=== PATIENT | female | born 1955 | race Caucasian/White ===

== ENCOUNTER → 2016-08-06 | Outpatient (CLI) | payer OTHER ==
[~2016-08-06] MED LIST: AMBI5TAB PO; ASPI1TAB69 PO; DIFL0.0512 LEFT EYE; LEVO112T2 PO; NEPA0.3D LEFT EYE; PANT40TA3 PO; PROT40TA PO; REST0.05 EACH EYE; REST0.05 OU; ST JTAB PO; VIGA0.5D LEFT EYE; VITA100064 PO; VITA20003 PO
[2016-08-06 13:36] LABS: AUTOMATED NEUTROPHIL # 5.1 TH/MM3 (1.8-7.7); BASOPHIL # 0.1 TH/MM3 (0-0.2); BASOPHIL % 0.6 % (0.0-2.0); EOSINOPHIL # 0.2 TH/MM3 (0-0.4); EOSINOPHIL % 2.3 % (0.0-4.0); HEMATOCRIT 42.8 % (35.0-46.0); HEMO FLAGS DIFF FINAL; LYMPHOCYTE # 2.4 TH/MM3 (1.0-4.8); MEAN CELL VOLUME 96.9 FL (80.0-100.0); MEAN CORPUSCULAR HEMOGLOBIN 33.4 PG (27.0-34.0); MEAN CORPUSCULAR HGB CONC 34.4 % (32.0-36.0); MONO % 7.2 % (0.0-8.0); NEUT % 60.9 % (16.0-70.0); PLATELET COUNT 252 TH/MM3 (150-450); RED BLOOD COUNT 4.41 MIL/MM3 (4.00-5.30); WHITE BLOOD COUNT 8.3 TH/MM3 (4.0-11.0)
[2016-08-06 13:42] LABS: BLOOD, URINE SMALL (NEG); GLUCOSE,URINE NEG (NEG); KETONE, URINE NEG (NEG); MUCUS URINE FEW /lpf (OCC); NITRITE,URINE NEG (NEG); URINE COLOR YELLOW (YELLW/STRAW)
[2016-08-06 13:44] LABS: COMMENT (UR) CULT NOT INDICATED; CULTURE IF INDICATED CULT NOT INDICATED
[2016-08-06 13:58] LABS: BICARBONATE 28.2 MEQ/L (21.0-32.0); POTASSIUM 4.3 MEQ/L (3.5-5.1)
--- NOTE | 2016-08-06 14:06 | RADRPT ---
EXAM DATE/TIME: 08/06/2016 13:52 [place] COMPARISON: No previous studies available for comparison. INDICATIONS : Evaluate for pneumonia, pneumothorax, or communicable disease. Pre-op for a hysterectomy on 08/10/16. MEDICAL HISTORY : Gastroesophageal reflux disease. Smoker. SURGICAL HISTORY : Fusion, cervical. ENCOUNTER: Initial ACUITY: 1 day PAIN SCORE: 0/10 LOCATION: Bilateral chest FINDINGS: The heart is normal in size. The mediastinal contours are within normal limits. There are COPD change s within the pulmonary parenchyma. The visualized bony structures are grossly intact. There has been previous fusion in the low cervical spine. CONCLUSION: 1. COPD changes. No acute abnormality. Chetan Martinez MD on August 06, 2016 at 13:59 Board Certified Radiologist. This report was verified electronically.
--- NOTE | 2016-08-07 17:41 | EKG ---
Date Performed: 08/06/2016 Time Performed: 13:32:19 PTAGE: 61 years EKG: Sinus rhythm Compared to prior tracing no significant change NORMAL ECG PREVIOUS TRACING : 08/02/2015 13.12 DOCTOR: Florian Toney Interpretating Date/Time 08/07/2016 17:40:34
== END ==
LOC: CPRE 12:47
PROVIDERS: ATTEND Obstetrics & Gynecology
DX: Z01.812 Encounter for preprocedural laboratory examination (principal); Z01.810 Encounter for preprocedural cardiovascular examination; Z01.811 Encounter for preprocedural respiratory examination; N95.0 Postmenopausal bleeding; N84.0 Polyp of corpus uteri
CPT/HCPCS: 36415; 71020; 80051; 81001; 85025; 86850; 86900; 86901; 93005

== ENCOUNTER 2016-08-08 10:20 | Observation (INO) | payer OTHER ==
--- NOTE | 2016-08-07 12:40 | MH ---
cc: SID HAINES DATE OF ADMISSION 08/08/2016 ADMISSION DIAGNOSIS Postmenopausal bleeding, uterine polyps. HISTORY OF PRESENT ILLNESS The patient is a 61-year-old white female para 2-0-1-2 who developed postmenopausal bleeding at the end of 2014. She underwent a hysteroscopy and D&C at [facility] on 08/04/2015 which returned with benign polyps. She did well for two or three months and had recurrent bleeding. The patient has had a follow-up ultrasound on 07/18/2016 that showed a uterus measuring 5.9 cm, uterine thickening to 10 mm. She is now admitted for surgical evaluation. She also has a small fibroid. The right ovary could not be seen. The left was normal. ADDITIONAL PAST MEDICAL HISTORY Additional surgeries include: 1. Tubal ligation 1977 2. Tubal in 1977 3. Spinal fusion 1992 at C3-C4 MEDICATIONS 1. Pantoprazole 2. Levothyroxine ALLERGIES None TRANSFUSIONS History of transfusions with ectopic. OBSTETRICAL HISTORY Two vaginal deliveries. SOCIAL HISTORY She works at [employer]. for 42 years. Alcohol, occasional. Cigarettes, a half pack for 30 years. Drugs none. FAMILY HISTORY Her family history is noncontributory. PHYSICAL EXAM This is a well-nourished well-developed white female. VITAL SIGNS: Stable. HEENT: Exam is normal. CHEST: Clear. HEART: Regular rate. BREASTS: The breasts are symmetrical. ABDOMEN: Benign. PELVIC EXAM: Normal external genitalia and BUS. The vagina is normal. The cervix is normal. The uterus is normal size, shape anterior. No adnexal masses. ASSESSMENT As above. PLAN She is now admitted for D&C with frozen section, laparoscopy, probable LASH/BSO possible JENNIFER/BSO. While in the office, I explained the procedures, the risks, benefits and complications and patient would like to proceed. MD FRANCESCO Nicole/TAYLOR /12:27 PM /12:33 PM
[~2016-08-08] VITALS: Ht 167.6 cm; Wt 79.3 kg
[~2016-08-08 10:20] MED LIST changes: -DIFL0.0512 LEFT EYE; -NEPA0.3D LEFT EYE; -PROT40TA PO; -REST0.05 OU; -ST JTAB PO; -VIGA0.5D LEFT EYE; -VITA20003 PO
[2016-08-08] MEDS ORDERED: ACETAMINOPHEN 1000 MG/100 ML VIAL IV SCH (11:00)
[2016-08-08] MEDS ORDERED: INSULIN HUMAN REGULAR 1,000 UNITS/10 ML VIAL SQ PRN (11:00)
[2016-08-08] MEDS ORDERED: LACTATED RINGER'S 1000 ML IV SCH (11:00)
[2016-08-08] MEDS ORDERED: METOPROLOL TARTRATE 25 MG TAB PO PRN (11:00)
[2016-08-08] MEDS ORDERED: ceFAZolin 2 GM PREMIX 50 ML IV SCH (11:00)
[2016-08-08] MEDS ORDERED: SODIUM CHLORID 0.9% 500 ML IV SCH (11:00)
[2016-08-08 11:33] VITALS: BP 158/91; PULSE 76; RESP 20; TEMP 98.1; O2SAT 98
[2016-08-08] MEDS ORDERED: BUPIVACAINE LIPOSOME PF 1.3% 20 ML VIAL ONE (11:40)
[2016-08-08] MEDS ORDERED: DEXAMETHASONE SOD PHOS PF 10 MG/ML VIAL IV ONE (11:40)
[2016-08-08] MEDS ORDERED: KETOROLAC TROMETHAMINE 60 MG/2 ML (IM) VIAL IM ONE (12:00)
[2016-08-08] MEDS ORDERED: NEOSTIGMINE 3 MG/3 ML SYR IV ONE (12:00)
[2016-08-08] MEDS ORDERED: PROPOFOL 200 MG/20 ML AMP IV ONE (12:00)
[2016-08-08] MEDS ORDERED: ONDANSETRON HCL 4 MG/2 ML VIAL IV PUSH ONE (12:00)
[2016-08-08] MEDS ORDERED: LACTATED RINGER'S 1000 ML INJ 1,000 ML IV ONE (12:00)
[2016-08-08] MEDS ORDERED: MIDAZOLAM HCL 5 MG/5 ML VIAL ONE (12:05)
[2016-08-08] MEDS ORDERED: DEXAMETHASONE SOD PHOS 4 MG/ML VIAL ONE (12:05)
[2016-08-08] MEDS ORDERED: FAMOTIDINE 20 MG/2 ML VIAL ONE (12:05)
[2016-08-08] MEDS ORDERED: fentaNYL CITRATE 250 MCG/5 ML AMP ONE (12:34)
[2016-08-08] MEDS ORDERED: ONDANSETRON HCL 4 MG/2 ML VIAL IV PRN (14:45)
[2016-08-08] MEDS ORDERED: ONDANSETRON ODT 4 MG TAB PO PRN (14:45)
[2016-08-08] MEDS ORDERED: PROMETHAZINE INJ 25 MG/ML VIAL IM PRN (14:45)
[2016-08-08] MEDS ORDERED: SODIUM CHLORIDE 0.9% FLUSH 5 ML FLUSH FLUSH PRN (14:45)
[2016-08-08] MEDS ORDERED: PROMETHAZINE HCL 25 MG TAB PO PRN (14:45)
[2016-08-08] MEDS ORDERED: HYDROmorphone HCL PF 1 MG/ML VIAL IV PRN (14:45)
[2016-08-08] MEDS ORDERED: diphenhydrAMINE HCL 25 MG CAP PO PRN (14:45)
[2016-08-08] MEDS ORDERED: *RESP: ALBUTEROL 2.5 MG/3 ML NEB (PRN) PERIprocedural Use ONLY NEB ONE (14:51)
[2016-08-08] MEDS: D5-1/2 NS + KCL 20 MEQ INJ 1,000 ML IV SCH (15:00)
[2016-08-08] MEDS ORDERED: *morphine SULFATE 8 MG/ML PERIprocedure ONLY ONE (15:20)
[2016-08-08] MEDS ORDERED: ONDANSETRON INJ 8 MG in DEXTROSE 5% IN WATER INJ 50 ML IV PRN ×2 (15:30)
[2016-08-08] MEDS ORDERED: ONDANSETRON INJ 8 MG in DEXTROSE 5% IN WATER INJ 50 ML IV PUSH PRN ×2 (15:30)
[2016-08-08] MEDS ORDERED: KETOROLAC TROMETHAMINE 30 MG/ML (IVP) VIAL IVP SCH (16:00)
[2016-08-08] MEDS: DOCUSATE SODIUM 100 MG CAP PO SCH (16:00)
[2016-08-08 16:30] VITALS: O2SAT 99
[2016-08-08 18:51] LABS: HEMATOCRIT 39.4 % (35.0-46.0); REVIEW FLAG FINAL
[2016-08-08] MEDS: ACETAMINOPHEN 1000 MG/100 ML VIAL IV SCH (20:22)
[2016-08-08 20:36] VITALS: BP 130/72; PULSE 72; RESP 18; TEMP 97.9
[2016-08-08] MEDS: KETOROLAC TROMETHAMINE 30 MG/ML (IVP) VIAL IVP SCH (20:43)
[2016-08-08] MEDS ORDERED: ZOLPIDEM TARTRATE 5 MG TAB PO PRN (21:00)
[2016-08-08] MEDS ORDERED: SODIUM CHLORIDE 0.9% FLUSH 5 ML FLUSH FLUSH SCH (21:00)
[2016-08-09 00:50] VITALS: BP 124/69; PULSE 65; RESP 18; TEMP 97.9
[2016-08-09] MEDS: D5-1/2 NS + KCL 20 MEQ INJ 1,000 ML IV SCH (01:31)
[2016-08-09] MEDS: KETOROLAC TROMETHAMINE 30 MG/ML (IVP) VIAL IVP SCH ×2 (03:12→08:15)
[2016-08-09] MEDS: DOCUSATE SODIUM 100 MG CAP PO SCH (04:30)
[2016-08-09] MEDS: ACETAMINOPHEN 1000 MG/100 ML VIAL IV SCH (04:30)
[2016-08-09 05:20] VITALS: BP 148/74; PULSE 71; RESP 18; TEMP 98
[2016-08-09] MEDS ORDERED: LEVOTHYROXINE SODIUM 112 MCG TAB PO SCH (06:00)
[2016-08-09 06:51] LABS: AUTOMATED NEUTROPHIL # 12.7 TH/MM3 (1.8-7.7); BASOPHIL % 0.1 % (0.0-2.0); HEMATOCRIT 40.6 % (35.0-46.0); HEMO FLAGS DIFF FINAL; MEAN CELL VOLUME 97.7 FL (80.0-100.0); MEAN CORPUSCULAR HEMOGLOBIN 33.7 PG (27.0-34.0); MEAN CORPUSCULAR HGB CONC 34.5 % (32.0-36.0); MONO % 4.4 % (0.0-8.0); NEUT % 88.5 % (16.0-70.0); PLATELET COUNT 227 TH/MM3 (150-450); RED BLOOD COUNT 4.15 MIL/MM3 (4.00-5.30); RED CELL DISTRIBUTION WIDTH 13.2 % (11.6-17.2); WHITE BLOOD COUNT 14.4 TH/MM3 (4.0-11.0)
[2016-08-09 07:13] LABS: BICARBONATE 24.7 MEQ/L (21.0-32.0); POTASSIUM 4.6 MEQ/L (3.5-5.1)
[2016-08-09 08:00] VITALS: BP 136/74; PULSE 68; RESP 16; TEMP 98.2
--- NOTE | 2016-08-09 08:40 | HHI.DCPOC ---
Discharge Care Plan Report Symptoms to Your Doctor -Temperate above 100.5 degrees -Redness, of incision or excessive or foul smelling drainage -Unusual pain or calf pain -Increased vaginal bleeding -Painful or difficulty urinating -Feelings of extreme sadness or anxiety after 2 weeks Goals to Promote Your Health * To prevent worsening of your condition and complications * To maintain your health at the optimal level Directions to Meet Your Goals Take your medications as prescribed Follow your dietary instruction Follow activity as directed Ensure plenty of rest for recovery Drink fluids for hydration Keep your appointments as scheduled Take your immunizations and boosters as scheduled If your symptoms worsen call your PCP, if no PCP go to Urgent Care Center or Emergency Room Smoking is Dangerous to Your Health. Avoid second hand smoke Call the 24-hour crisis hotline for domestic abuse at Evan Liriano MD Aug 09, 2016 08:40
[2016-08-09] MEDS ORDERED: PANTOPRAZOLE SOD 40 MG DELAYED RELEASE TAB PO SCH (09:00)
--- NOTE | 2016-08-09 19:43 | MP ---
cc: SID HAINES DATE OF SURGERY: 08/08/2016. PREOPERATIVE DIAGNOSIS: 1. Postmenopausal bleeding. 2. Uterine polyps. 3. Uterine fibroids. POSTOPERATIVE DIAGNOSIS: 1. Postmenopausal bleeding. 2. Uterine polyps. 3. Uterine fibroids. 4. Well-differentiated adenocarcinoma of the endometrium. OPERATIVE PROCEDURE PERFORMED: Hysteroscopy, D&C with frozen section, laparoscopy, TLH/RSO. ANESTHESIA: General ET SURGEON: Sid Haines MD CHIEF PILOT: SYDNEY Garcia. ESTIMATED BLOOD LOSS FOR THE PROCEDURE: About 50 cc. FLUIDS: 1.4 liters crystalloid. DESCRIPTION OF THE PROCEDURE IN DETAIL / OBJECTIVE FINDINGS: Following the induction of adequate general endotracheal anesthesia, the patient was prepped and draped supine on the operating table in the dorsal lithotomy position in the usual sterile fashion with the bladder being drained by Salazar catheterization. Examination under anesthesia revealed a normal size, shape anterior uterus. No adnexal masses. The cervix was exposed with handheld retractors and grasped anteriorly with a single-tooth tenaculum. Cervix and uterus sounded to 8 cm. Cervix was dilated to a #18 Hanks dilator. The hysteroscope was passed revealing normal endocervix and a 1 to 2 cm anterior polyp. The endocervix was curetted with a small serrated curet and the endometrium with a small sharp curet and the polyp removed with polyp forceps and sent for frozen section with endometrial curettings. The vaginal instruments were now removed. The tenaculum site was sutured with 3-0 chromic. 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 The abdomen was opened through a 3 cm curving infraumbilical incision using a knife to cut down through the skin to the fascia. The fascia was opened transversely the muscles and peritoneum sharply. Palpation was normal. A GelPort was placed. The laparoscope was inserted. The uterus was normal size with anterior fibroid about 3 cm. The left tube and ovary were absent. The right ovary was normal. The right tube with interruption. The appendix was normal. The cul-de-sacs were clear. The liver was normal. There was no visible adenopathy. Peritoneal washings were collected. Harmonic scalpel was used take the left round ligament, left broad ligament, left-sided bladder flap and left uterine vessels. On the right side, the harmonic was used take the right ovarian vessels, right round ligament, right broad ligament, right-sided bladder flap and right uterine vessels. Frozen section returned with a well differentiated adenocarcinoma so decision was made to proceed to include the cervix in the hysterectomy portion. The harmonic scalpel was used take the right and left cardinals, the right and left ureterosacrals. The vagina was entered anteriorly with the harmonic scalpel and used to excise the cervix from the vaginal cuff. The cervix, uterus, right tube and ovary were now extracted intact in a pouch. Irrigation was performed. No bleeding was evident. The vagina was closed with a 2-0 Vicryl quill stitch. Both ureters were inspected and showed good peristalsis and they are well clear of the operative field. Low pressure tests were done in the Trendelenburg position and there no bleeding. The operative site was now closed with Evicel. The scope was removed. The GelPort was removed. The peritoneum was sutured with running 2-0 Vicry, the fascia with a running locking stitch of 30 Vicryl corner to midline and tied, subcuticular with running 3-0 Vicryl and skin with a running subcuticular 3-0 Monocryl. The scope was now reinserted through the lower port and used to inspect the GelPort site which was well closed. There was no bleeding. The pelvis was inspected and there was no bleeding. The ureters were inspected with good peristalsis. The scope was removed and gas allowed to escape and small wounds closed with 3-0 Monocryl. Dermabond applied. All counts were correct. The patient was awake and taken to the recovery room in good position. MD FRANCESCO Nicole/JESSICA /2:42 PM /7:28 PM DORIS
== END 2016-08-09 09:59 | disposition home or self-care (01) ==
LOC: HSDC 10:20 → HSDI 14:38 → H1EA 17:46
PROVIDERS: ADMIT Obstetrics & Gynecology; ATTEND Obstetrics & Gynecology
DX: C54.1 Malignant neoplasm of endometrium (principal); D25.9 Leiomyoma of uterus, unspecified; N95.0 Postmenopausal bleeding; N84.0 Polyp of corpus uteri; Z98.1 Arthrodesis status
CPT/HCPCS: 00840; 58571; 64488; 80048; 85014; 85018; 85025; 88305; 88309; 88331; 94664; C9290; G0378; J0131; J0690; J1100; J1885; J2250; J2270; J2405; J2710; J3010; J3480; J7120; J7613; 88307